=== PATIENT | female | born 1990 | race Two or more races ===

== ENCOUNTER 2024-04-03 12:59 | Emergency (ER) | payer OTHER ==
[~2024-04-03] VITALS: Ht 167.6 cm; Wt 99.8 kg
[2024-04-03] MEDS ORDERED: LIDOCAINE HCL 1% 10ML VIAL ONE (14:26)
[2024-04-03] MEDS ORDERED: ACETAMINOPHEN 500 MG GEL..CAP PO STA (14:48)
[2024-04-03] MEDS ORDERED: ACETAMINOPHEN 500 MG GEL..CAP PO ONE (14:53)
== END 2024-04-03 15:04 | disposition home or self-care (01) ==
LOC: ER 13:00
DX: S81.812A Laceration without foreign body, left lower leg, initial encounter (principal); W25.XXXA Contact with sharp glass, initial encounter; Y93.89 Activity, other specified; Y92.89 Other specified places as the place of occurrence of the external cause; Y99.9 Unspecified external cause status